=== PATIENT | male | born 1980 | race Caucasian/White ===

== ENCOUNTER 2024-04-26 19:40 | Observation (INO) ==
[2024-04-26 20:22] LABS: ABS Basophils 0.1 10^3/uL (0.0-0.1); ABS Eosinophils 0.3 10^3/uL (0.0-0.5); ABS Lymphocytes 3.3 10^3/uL (1.0-4.8); ABS Monocytes 0.8 10^3/uL (0.0-1.1); ABS Neutrophils 5.2 10^3/uL (1.5-7.6); ABS Nucleated RBC 0.01 10^3/ul; Eosinophil % 3.1 %; Hematocrit 45.6 % (38-53); Hemoglobin 15.7 g/dL (13.2-16.3); Lymphocyte % 34.7 %; Mean Corpuscular Hemoglobin 29.7 pg (27-33); Mean Corpuscular Hgb Conc 34.5 g/dL (31-36); Mean Platelet Volume 9.2 fL (7.5-11.2); Nucleated Red Blood Cells % 0.1 %/100WBC (0.0-0.8); Platelet Count 248 10^3/uL (150-450); Red Cell Distribution Width 13.7 % (12-17); White Blood Count 9.6 10^3/uL (3.6-10.2)
[2024-04-26 20:40] LABS: Activated Partial Thrombo Time 31.8 seconds (26.0-38.0); INR 0.99 (0.85-1.14)
[2024-04-26] MEDS: Aspirin EC 325 mg TAB.EC PO ONE (21:00)
[2024-04-26 21:03] LABS: ALT 38 U/L (7-52); Albumin 4.9 g/dL (3.5-5.7); Albumin/Globulin Ratio 1.8 (1-3); Alkaline Phosphatase 101 U/L (35-149); Anion Gap 8 mmol/L (2-16); Blood Urea Nitrogen 16 mg/dL (6-24); CO2 Carbon Dioxide 26 mmol/L (22-32); Calcium 10.3 mg/dL (8.6-10.3); Chloride 100 mmol/L (101-111); Cholesterol 233 mg/dL; Creatinine, Serum 0.93 mg/dL (0.67-1.17); Globulin 2.8 g/dL (2-4); Glucose 102 mg/dL (70-100); HDL Cholesterol 48.6 mg/dL; LDL Cholesterol 131 mg/dL; Sodium 134 mmol/L (135-145); Total Bilirubin 0.5 mg/dL (0.2-1.0); Total Protein 7.7 g/dL (6.4-8.9); Triglycerides 267 mg/dL; eGFR CKD-EPI 105.1 (>60)
[2024-04-26] MEDS ORDERED: Sulfur Hexaflouride MICROSPHR 25 MG VIAL IV PRN (22:43)
[2024-04-26] MEDS ORDERED: Albuterol HFA INHALER 8 gm MDI INH PRN (23:48)
[2024-04-27] MEDS ORDERED: HYDROcodone/ACET. 7.5/325 LIQ 15 ML UDC PO PRN ×2 (00:27→01:47)
[2024-04-27 06:59] LABS: Direct Bilirubin Redraw 0.1 mg/dL (0.1-0.5)
[2024-04-27] MEDS: HYDROcodone/ACETAMIN 5/325 mg TAB PO PRN (09:44)
[2024-04-27 10:11] VITALS: BP 141/95
[2024-04-27 10:25] LABS: Urine Appearance Clear; Urine Bilirubin Negative (Negative); Urine Blood Negative (Negative); Urine Color Yellow; Urine Glucose Negative (Negative); Urine Ketones Negative (Negative); Urine Nitrite Negative (Negative); Urine Protein Trace (Negative); Urine Specific Gravity 1.037 (1.002-1.030); Urine Urobilinogen Negative (Negative)
[2024-04-27 10:28] LABS: Urine Bacteria Absent /HPF (Absent); Urine Red Blood Cell Trace(0-2/hpf) /HPF (0-Trace); Urine Squamous Epithelial Cell Present /HPF (Absent); Urine White Blood Cell Trace(0-5/hpf) /HPF (0-Trace)
[2024-04-27] MEDS: Calcium Carb (TUMS) 500 mg CHEW TAB PO PRN (11:11)
== END 2024-04-27 15:10 | disposition home or self-care (01) ==
LOC: ED 19:40 → EDHOLD 19:40 → MEDTELE 04-27 01:05
PROVIDERS: ADMIT Internal Medicine; ATTEND Internal Medicine